=== PATIENT | male | born 1945 | race Caucasian/White ===

== ENCOUNTER → 2017-11-14 | Day surgery (SDC) | payer OTHER ==
[~2017-11-14] MED LIST: AMIO200T PO; ASPI81 PO; GENTAMICIN SULFATE 80 MG/2 ML VIAL ONE; GLIM2TAB PO; LACTATED RINGER'S 1000 ML INJ 1,000 ML ONE; LORT5TAB PO; MAGN400 PO; METF-324 PO; METO50TA OR; MIDAZOLAM HCL 2 MG/2 ML VIAL ONE; OMEP20TA PO; ONDANSETRON HCL 4 MG/2 ML VIAL IV PUSH ONE; PROPOFOL 200 MG/20 ML AMP IV ONE; RAMI2.5C29 PO; SIMV20TA PO; SODIUM CHLORIDE 0.9% 100 ML ADDBAG IV ONE; TAB-TAB PO; [UNRECOGNIZED DRUG - CODE] PO
--- NOTE | 2017-11-14 10:54 | TN ---
cc: Maximo Santana MD DATE OF SURGERY: 11/14/2017 PREOPERATIVE DIAGNOSIS: Severe bulbous urethral stricture (ICD-10 code N35.9). POSTOPERATIVE DIAGNOSIS: Severe bulbous urethral stricture (ICD-10 code N35.9). PROCEDURE PERFORMED: Direct visual internal urethrotomy (DVIU direct visual internal urethrotomy) (CPT code 48523). INDICATIONS: Mr. Dean is a 72-year-old gentleman who has a worsening bulbous urethral stricture after a TURP recently and became symptomatic. He presents now for internal urethrotomy. FINDINGS: No pendulous urethral strictures; however, there is a grade 3 bulbous urethral stricture. The urethral sphincter is intact. The prostatic urethra shows a wide open channel with evidence of previous resection. The bladder shows ureteral orifices normal size, shape and position, effluxing clear urine. There is some mild trabeculations. No diverticula or cellules. No tumors, calcifications or abnormal mucosa identified. PROCEDURE: The procedure, as well as, the risks and benefits were explained to the patient. An informed consent was obtained. The patient was taken to the major operative theater where he was placed in the supine position. The patient was identified, as well as the operative site. A universal time-out was performed in the standard fashion. At this time, general anesthetic and prophylactic intravenous antibiotics consisting of gentamicin 80 mg was administered. After adequate anesthetic, he was placed in the low dorsal lithotomy position, prepped and draped in the usual sterile fashion. At this time, a 22.5 [place]ian cystoscope with a 30-degree lens was inserted into the urethra to the level of the bulbous urethral stricture and could not be passed any further. At this time, a 0.035 inch hybrid wire was then placed through the opening presumably into the bladder. The cystoscope was removed leaving the wire in place as a safety wire. Alongside this wire, an optical urethrotome with a serrated blade was passed and making multiple incisions at the 12 o'clock position, the strictured area was opened up so as to allow the operative urethrotome to pass into the bladder. The bladder was systematically surveyed with the above findings, and then the scope was then removed. An 18-Lith[place]ian coude tip catheter was placed without difficulty into the bladder. After the wire was removed, 10 mL of sterile water was insufflated into the balloon and placed to straight drain. The patient will maintain the catheter for approximately 2-3 days to allow for healing. The catheter was then placed to straight drain with a leg bag. The patient was placed back in the supine position, emerged from anesthetic without difficulty and transferred to the recovery room in stable condition to be discharged home when criteria is met. There were no obvious complications. MD KENAYTTA Larios/MOISES , 10:29 AM , 10:53 AM
== END | disposition home or self-care (01) ==
LOC: ESDC 08:27
PROVIDERS: ATTEND Urology
DX: N35.9 Urethral stricture, unspecified (principal)
CPT/HCPCS: 00910; 52276; C1769; J1580; J2250; J2405; J3010; J7120